=== PATIENT | male | born 1990 | race Two or more races ===

== ENCOUNTER 2016-05-19 17:22 | Emergency (ER) | payer MEDICAID ==
[~2016-05-19] VITALS: Ht 177.8 cm; Wt 113.4 kg
[~2016-05-19 17:22] MED LIST: BUSP10TA35 PO; FLUP25VI2 IJ; NO MEDS; TOPI100T9 PO
[2016-05-19 18:16] LABS: BASOPHILS # (AUTO) 0.4 /CMM (0.0-0.2); BASOPHILS % (AUTO) 4.2 % (0.0-2.0); DIFF TOTAL % 100 %; EOSINOPHILS # (AUTO) 0.2 /CMM (0.0-0.7); EOSINOPHILS % (AUTO) 2.5 % (0.0-6.0); HEMATOCRIT 43 % (39-51); HEMOGLOBIN 14.1 g/dL (13.5-17.5); LYMPHOCYTES # (AUTO) 2.3 /CMM (0.8-4.8); LYMPHOCYTES % (AUTO) 27.2 % (20.0-44.0); MEAN CORPUSCULAR HEMOGLOBIN 28 PG (26.0-33.0); MEAN CORPUSCULAR HGB CONC 33 g/dl (31.0-36.0); MEAN CORPUSCULAR VOLUME 86 fL (80-96); MONOCYTES # (AUTO) 0.6 /CMM (0.1-1.30); MONOCYTES % (AUTO) 7.5 % (2.0-12.0); NEUTROPHILS % (AUTO) 58.6 % (43.0-81.0); PLATELET COUNT (AUTO) 293 /CMM (150-450); RED BLOOD CELL COUNT(AUTO) 5.01 MIL/uL (4.5-6.0); WHITE BLOOD COUNT (AUTO) 8.5 K/uL (4.3-11.0)
[2016-05-19 18:35] LABS: ALANINE AMINOTRANSFERASE 75 U/L (12-78); ALBUMIN 3.5 g/dL (3.4-5.0); ANION GAP 14 (5-14); ASPARTATE AMINOTRANSFERASE 45 U/L (15-37); BILIRUBIN,DIRECT 0.1 mg/dL (0.0-0.2); BILIRUBIN,TOTAL 0.6 mg/dL (0.2-1.0); CARBON DIOXIDE 25 mmol/L (21-32); CHLORIDE 101 mmol/L (98-107); CREATININE 0.8 mg/dL (0.6-1.3); GFR 117 mL/min (>60); GLUCOSE 100 mg/dL (74-106); INDIRECT BILIRUBIN 0.5 mg/dL (0.0-1.1); POTASSIUM 3.9 mmol/L (3.5-5.1); SODIUM SERUM 136 mmol/L (136-145); TOTAL PROTEIN, SERUM 6.9 g/dL (6.4-8.2); UREA NITROGEN, BLOOD 16 mg/dL (7-18)
[2016-05-19 18:40] LABS: ACETAMINOPHEN 0 ug/ml (10-30)
[2016-05-19] MEDS ORDERED: LIDOCAINE 2% JEL UROJET 10 ML MM ONE (20:51)
[2016-05-19] MEDS: LIDOCAINE 2% JEL UROJET 10 ML MM ONE (20:57)
[2016-05-19 21:04] LABS: ADD UA MICROSCOPIC NO; KETONES,URINE Negative (NEGATIVE); LEUKOCYTE ESTERASE ,URINE Negative (NEGATIVE)
[2016-05-19 21:15] LABS: CANNABINOID, URINE NEGATIVE (NEGATIVE); PHENCYCLIDINE SCREEN,URINE NEGATIVE (NEGATIVE)
[2016-05-19 23:30] VITALS: BP 136/61
== END 2016-05-19 23:31 ==
LOC: ER 17:23
DX: F15.10 Other stimulant abuse, uncomplicated (principal); F31.9 Bipolar disorder, unspecified; F25.9 Schizoaffective disorder, unspecified; F41.9 Anxiety disorder, unspecified; F17.200 Nicotine dependence, unspecified, uncomplicated; Z88.0 Allergy status to penicillin; Z88.8 Allergy status to other drugs, medicaments and biological substances
CPT/HCPCS: 36415; 80048-TC; 80076-TC; 80305; 81000-TC; 85025-TC; A4606; G6038-TC; G6039-TC; G6040-TC; J3490; Z7610

== ENCOUNTER 2016-05-21 14:44 | Emergency (ER) | payer MEDICAID ==
[~2016-05-21] VITALS: Ht 172.7 cm; Wt 90.7 kg
[2016-05-21] MEDS ORDERED: LORAZEPAM INJ 2 MG/ML VIAL ONE ×5 (14:51→19:43)
[2016-05-21] MEDS ORDERED: LORAZEPAM INJ 2 MG/ML VIAL IM ONE ×2 (15:00→16:00)
[2016-05-21 15:15] LABS: BASOPHILS # (AUTO) 0.3 /CMM (0.0-0.2); BASOPHILS % (AUTO) 3.4 % (0.0-2.0); DIFF TOTAL % 100 %; EOSINOPHILS % (AUTO) 0.5 % (0.0-6.0); HEMATOCRIT 43 % (39-51); HEMOGLOBIN 14.4 g/dL (13.5-17.5); LYMPHOCYTES # (AUTO) 2.2 /CMM (0.8-4.8); LYMPHOCYTES % (AUTO) 22.4 % (20.0-44.0); MEAN CORPUSCULAR HEMOGLOBIN 29 PG (26.0-33.0); MEAN CORPUSCULAR HGB CONC 34 g/dl (31.0-36.0); MEAN CORPUSCULAR VOLUME 85 fL (80-96); MONOCYTES # (AUTO) 0.8 /CMM (0.1-1.30); NEUTROPHILS # (AUTO) 6.6 /CMM (1.8-8.9); NEUTROPHILS % (AUTO) 65.7 % (43.0-81.0); PLATELET COUNT (AUTO) 321 /CMM (150-450); RED BLOOD CELL COUNT(AUTO) 5.07 MIL/uL (4.5-6.0); WHITE BLOOD COUNT (AUTO) 9.9 K/uL (4.3-11.0)
[2016-05-21 15:30] LABS: ACETAMINOPHEN < 10 ug/ml (10-30); ALANINE AMINOTRANSFERASE 69 U/L (12-78); ALBUMIN 3.9 g/dL (3.4-5.0); ANION GAP 13 (5-14); ASPARTATE AMINOTRANSFERASE 42 U/L (15-37); BILIRUBIN,DIRECT 0.1 mg/dL (0.0-0.2); BILIRUBIN,TOTAL 0.5 mg/dL (0.2-1.0); CALCIUM, SERUM 8.9 mg/dL (8.5-10.1); CARBON DIOXIDE 27 mmol/L (21-32); CHLORIDE 101 mmol/L (98-107); GFR 90 mL/min (>60); GLUCOSE 109 mg/dL (74-106); INDIRECT BILIRUBIN 0.4 mg/dL (0.0-1.1); POTASSIUM 3.6 mmol/L (3.5-5.1); SALICYLATE 0.9 mg/dL (2.8-20.0); SODIUM SERUM 137 mmol/L (136-145); TOTAL PROTEIN, SERUM 7.3 g/dL (6.4-8.2); UREA NITROGEN, BLOOD 14 mg/dL (7-18)
[2016-05-21] MEDS ORDERED: IV NS 0.9% 1,000 ML BAG IV ONE ×2 (15:30→20:30)
[2016-05-21 15:32] LABS: TROPONIN I < 0.017 ng/mL (0.00-0.056)
[2016-05-21] MEDS ORDERED: IV SET PRIMARY PUMP SET 1 EA INFUS.SET MC ONE (15:33)
[2016-05-21] MEDS ORDERED: IV NS 0.9% 1,000 ML ONE ×2 (15:33→20:35)
[2016-05-21 15:53] LABS: CREATINE KINASE, TOTAL 945 U/L (39-308)
[2016-05-21] MEDS ORDERED: LORAZEPAM INJ 2 MG/ML VIAL IV ONE ×3 (16:30→20:00)
[2016-05-21 17:44] LABS: CREATINE KINASE MB 5.5 ng/mL (0-3.6)
[2016-05-21] MEDS ORDERED: diphenhydrAMINE HCL 50 MG/ML VIAL ONE (19:42)
[2016-05-21] MEDS ORDERED: diphenhydrAMINE HCL 50 MG/ML VIAL IV ONE (20:00)
[2016-05-21] MEDS ORDERED: IV SET PRIMARY 1 EA INFUS.SET MC ONE (20:35)
[2016-05-22 00:19] LABS: CREATINE KINASE MB 5.1 ng/mL (0-3.6)
[2016-05-22 05:46] VITALS: BP 133/71
== END 2016-05-22 05:47 | disposition home or self-care (01) ==
LOC: ER 14:46
DX: F15.10 Other stimulant abuse, uncomplicated (principal); M62.82 Rhabdomyolysis; F17.200 Nicotine dependence, unspecified, uncomplicated; F32.9 Major depressive disorder, single episode, unspecified; F31.9 Bipolar disorder, unspecified; F25.9 Schizoaffective disorder, unspecified; Z88.8 Allergy status to other drugs, medicaments and biological substances
CPT/HCPCS: 36415; 80048; 80076; 82550 ×2; 82553 ×2; 84484; 85025; 93005; 96361; 96372 ×2; 96374 ×2; 96375; 96376; 99285; A4606; G0480; G0481; G0482; J1200; J2060 ×5; J7030 ×2; G6038-TC; G6039-TC; G6040-TC; Z7610

== ENCOUNTER 2016-05-29 20:39 | Emergency (ER) | payer MEDICAID ==
[~2016-05-29] VITALS: Ht 172.7 cm; Wt 90.7 kg
[2016-05-29] MEDS ORDERED: LORAZEPAM 1 MG TABLET ONE (21:12)
[2016-05-29 21:17] LABS: BASOPHILS # (AUTO) 0.4 /CMM (0.0-0.2); BASOPHILS % (AUTO) 3.3 % (0.0-2.0); DIFF TOTAL % 100 %; EOSINOPHILS # (AUTO) 0.2 /CMM (0.0-0.7); EOSINOPHILS % (AUTO) 1.5 % (0.0-6.0); HEMATOCRIT 47 % (39-51); HEMOGLOBIN 15.9 g/dL (13.5-17.5); LYMPHOCYTES # (AUTO) 2.4 /CMM (0.8-4.8); LYMPHOCYTES % (AUTO) 22.7 % (20.0-44.0); MEAN CORPUSCULAR HEMOGLOBIN 29 PG (26.0-33.0); MEAN CORPUSCULAR HGB CONC 34 g/dl (31.0-36.0); MEAN CORPUSCULAR VOLUME 85 fL (80-96); MONOCYTES # (AUTO) 0.8 /CMM (0.1-1.30); MONOCYTES % (AUTO) 7.1 % (2.0-12.0); NEUTROPHILS # (AUTO) 6.8 /CMM (1.8-8.9); NEUTROPHILS % (AUTO) 65.4 % (43.0-81.0); PLATELET COUNT (AUTO) 309 /CMM (150-450); RED BLOOD CELL COUNT(AUTO) 5.49 MIL/uL (4.5-6.0); WHITE BLOOD COUNT (AUTO) 10.6 K/uL (4.3-11.0)
[2016-05-29 21:24] LABS: ANION GAP 14 (5-14); CALCIUM, SERUM 8.6 mg/dL (8.5-10.1); CARBON DIOXIDE 24 mmol/L (21-32); CHLORIDE 103 mmol/L (98-107); CREATININE 1.1 mg/dL (0.6-1.3); GFR 81 mL/min (>60); GLUCOSE 109 mg/dL (74-106); POTASSIUM 3.6 mmol/L (3.5-5.1); SODIUM SERUM 137 mmol/L (136-145); UREA NITROGEN, BLOOD 16 mg/dL (7-18)
[2016-05-29] MEDS ORDERED: LORAZEPAM 1 MG TABLET PO ONE (21:30)
[2016-05-29 21:37] LABS: ALANINE AMINOTRANSFERASE 48 U/L (12-78); ALBUMIN 3.9 g/dL (3.4-5.0); ASPARTATE AMINOTRANSFERASE 30 U/L (15-37); BILIRUBIN,TOTAL 0.3 mg/dL (0.2-1.0); TOTAL PROTEIN, SERUM 7.3 g/dL (6.4-8.2)
[2016-05-29 21:40] LABS: ACETAMINOPHEN 0 ug/ml (10-30); INDIRECT BILIRUBIN 0.3 mg/dL (0.0-1.1); SALICYLATE 0.5 mg/dL (2.8-20.0)
[2016-05-29 21:44] LABS: ADD UA MICROSCOPIC NO; KETONES,URINE Negative (NEGATIVE); LEUKOCYTE ESTERASE ,URINE Negative (NEGATIVE)
[2016-05-29 21:50] LABS: CANNABINOID, URINE NEGATIVE (NEGATIVE); PHENCYCLIDINE SCREEN,URINE NEGATIVE (NEGATIVE)
[2016-05-29 23:40] VITALS: BP 132/80
== END 2016-05-29 23:41 | disposition home or self-care (01) ==
LOC: ER 20:42
DX: F41.9 Anxiety disorder, unspecified (principal); F32.9 Major depressive disorder, single episode, unspecified; F31.9 Bipolar disorder, unspecified; F20.9 Schizophrenia, unspecified; F17.200 Nicotine dependence, unspecified, uncomplicated; F10.10 Alcohol abuse, uncomplicated; Z88.0 Allergy status to penicillin; Z88.8 Allergy status to other drugs, medicaments and biological substances
CPT/HCPCS: 36415; 80048; 80076; 80305; 81001; 85025; 99284; A4606; G0480; G0481; G0482; Z7610; 81000-TC; G6038-TC; G6039-TC; G6040-TC

== ENCOUNTER 2016-06-19 16:27 | Emergency (ER) | payer MEDICAID ==
[~2016-06-19] VITALS: Ht 182.9 cm; Wt 86.2 kg
[~2016-06-19 16:27] MED LIST changes: +TOPI100T11 PO; -TOPI100T9 PO
[2016-06-19] MEDS ORDERED: LORAZEPAM 1 MG TABLET ONE (16:51)
[2016-06-19 16:52] LABS: BASOPHILS # (AUTO) 0.1 /CMM (0.0-0.2); BASOPHILS % (AUTO) 0.6 % (0.0-2.0); DIFF TOTAL % 100 %; EOSINOPHILS # (AUTO) 0.2 /CMM (0.0-0.7); EOSINOPHILS % (AUTO) 2.1 % (0.0-6.0); HEMATOCRIT 51 % (39-51); HEMOGLOBIN 16.9 g/dL (13.5-17.5); LYMPHOCYTES # (AUTO) 2.5 /CMM (0.8-4.8); LYMPHOCYTES % (AUTO) 24.8 % (20.0-44.0); MEAN CORPUSCULAR HEMOGLOBIN 28 PG (26.0-33.0); MEAN CORPUSCULAR HGB CONC 33 g/dl (31.0-36.0); MEAN CORPUSCULAR VOLUME 85 fL (80-96); MONOCYTES # (AUTO) 0.6 /CMM (0.1-1.30); MONOCYTES % (AUTO) 6.1 % (2.0-12.0); NEUTROPHILS # (AUTO) 6.7 /CMM (1.8-8.9); NEUTROPHILS % (AUTO) 66.4 % (43.0-81.0); PLATELET COUNT (AUTO) 324 /CMM (150-450); RED BLOOD CELL COUNT(AUTO) 5.94 MIL/uL (4.5-6.0); WHITE BLOOD COUNT (AUTO) 10.1 K/uL (4.3-11.0)
[2016-06-19 17:00] LABS: CREATININE 1.1 mg/dL (0.6-1.3); POTASSIUM 3.9 mmol/L (3.5-5.1)
[2016-06-19] MEDS ORDERED: LORAZEPAM 1 MG TABLET PO ONE (17:00)
[2016-06-19 17:03] LABS: CALCIUM, SERUM 9.6 mg/dL (8.5-10.1)
[2016-06-19 19:07] LABS: CANNABINOID, URINE NEGATIVE (NEGATIVE); PHENCYCLIDINE SCREEN,URINE NEGATIVE (NEGATIVE)
[2016-06-19 21:02] VITALS: BP 113/76
== END 2016-06-19 21:04 ==
LOC: ER 16:29
DX: F23 Brief psychotic disorder (principal); R45.851 Suicidal ideations; F25.9 Schizoaffective disorder, unspecified; F17.200 Nicotine dependence, unspecified, uncomplicated; F32.9 Major depressive disorder, single episode, unspecified; F31.9 Bipolar disorder, unspecified; Z88.0 Allergy status to penicillin; Z88.8 Allergy status to other drugs, medicaments and biological substances
CPT/HCPCS: 36415; 80048; 80305; 85025; 99285; A4606; G0480; Z7610

== ENCOUNTER 2016-09-16 15:15 | Emergency (ER) | payer MEDICAID ==
[~2016-09-16] VITALS: Ht 172.7 cm; Wt 102.1 kg
--- NOTE | 2016-09-16 15:22 | NUR ---
PT BIB [facility] FOR BIZARRE BEHAVIOR AND SI WITHOUT A PLAN. PT REPORTS "HALLUCINATIONS". A/OX1 ONLY. ADMITS TO PCP, ECSTACY, MARIJUANA, AND ALCOHOL USE TODAY. RESP EVEN UNLABORED. TACHYCARDIC ON MONITOR. SKIN WARM NONDIAPHORETIC. PLACED ON 2 POINT RESTRAINTS FOR SAFETY. PIV PRESENT ON ARRIVAL. IN ER BED 12 ON MONITOR.
[2016-09-16 15:31] LABS: BASOPHILS # (AUTO) 0.1 /CMM (0.0-0.2); EOSINOPHILS # (AUTO) 0.1 /CMM (0.0-0.7); EOSINOPHILS % (AUTO) 0.7 % (0.0-6.0); HEMATOCRIT 42 % (39-51); HEMOGLOBIN 14.4 g/dL (13.5-17.5); LYMPHOCYTES # (AUTO) 1.4 /CMM (0.8-4.8); LYMPHOCYTES % (AUTO) 14.5 % (20.0-44.0); MEAN CORPUSCULAR HEMOGLOBIN 29 PG (26.0-33.0); MEAN CORPUSCULAR HGB CONC 34 g/dl (31.0-36.0); MEAN CORPUSCULAR VOLUME 87 fL (80-96); MONOCYTES # (AUTO) 0.6 /CMM (0.1-1.30); NEUTROPHILS # (AUTO) 7.4 /CMM (1.8-8.9); NEUTROPHILS % (AUTO) 77.8 % (43.0-81.0); PLATELET COUNT (AUTO) 320 /CMM (150-450); RDW COEFFICIENT OF VARIATION 12.9 (11.5-15.0); WHITE BLOOD COUNT (AUTO) 9.6 K/uL (4.3-11.0)
[2016-09-16 15:38] LABS: CALCIUM, SERUM 8.3 mg/dL (8.5-10.1); POTASSIUM 3.4 mmol/L (3.5-5.1)
[2016-09-16 15:44] LABS: ALBUMIN 3.5 g/dL (3.4-5.0); BILIRUBIN,TOTAL 0.2 mg/dL (0.2-1.0)
[2016-09-16] MEDS ORDERED: IV SET PRIMARY 1 EA INFUS.SET MC ONE (15:45)
[2016-09-16] MEDS ORDERED: IV NS 0.9% 1,000 ML ONE (15:45)
[2016-09-16 15:47] LABS: SALICYLATE 1.9 mg/dL (2.8-20.0)
[2016-09-16] MEDS ORDERED: IV NS 0.9% 1,000 ML BAG IV ONE (16:00)
--- NOTE | 2016-09-16 16:30 | NUR ---
PT UNABLE TO URINATE IN URINAL. IN AND OUT CATH PERFORMED FOR URINE SAMPLE.
[2016-09-16 16:55] LABS: APPEARANCE,URINE CLEAR (CLEAR); BILIRUBIN,URINE NEGATIVE (NEGATIVE); BLOOD, URINE NEGATIVE Ery/uL (NEGATIVE); COLOR,URINE YELLOW (YELLOW); KETONES,URINE NEGATIVE (NEGATIVE); LEUKOCYTE ESTERASE ,URINE NEGATIVE (NEGATIVE); NITRITE, URINE NEGATIVE (NEGATIVE); PROTEIN,URINE NEGATIVE (NEGATIVE); UGLUCOSE NEGATIVE (NEGATIVE); UROBILINOGEN,URINE 0.2 EU/dL (0.2)
[2016-09-16 17:15] LABS: PHENCYCLIDINE SCREEN,URINE NEGATIVE (NEGATIVE)
[2016-09-16 17:18] LABS: CANNABINOID, URINE POSITIVE (NEGATIVE)
--- NOTE | 2016-09-16 17:44 | NUR ---
RESTING QUIETLY ON 1 POINT RESTRAINT. NAD NOTED. ALL NEEDS ATTENDED TO. CALLED FOR FOOD TRAY.
--- NOTE | 2016-09-16 19:13 | NUR ---
PINKY AT BEDSIDE
[2016-09-16] MEDS ORDERED: risperiDONE 1 MG TABLET ONE (19:25)
[2016-09-16] MEDS ORDERED: risperiDONE 0.25 MG TABLET PO ONE (19:30)
--- NOTE | 2016-09-16 19:32 | NUR ---
PT WALKING AROUND ER, MAKING PHONE CALLS TO "GODMOTHER". ALL NEEDS ATTENDED TO. ORDER FOR RISPERIDOL RECEIVED AND ADMINISTERED.
[2016-09-16 20:55] VITALS: BP 119/66
--- NOTE | 2016-09-16 21:22 | NUR ---
PT TRANSPORTED TO [facility] IN STABLE CONDITION. REPORT CALLED TO FACILITY.
== END 2016-09-16 21:33 ==
LOC: ER 15:24
DX: F23 Brief psychotic disorder (principal); F32.9 Major depressive disorder, single episode, unspecified; F31.9 Bipolar disorder, unspecified; Z88.0 Allergy status to penicillin; Z88.8 Allergy status to other drugs, medicaments and biological substances; F17.210 Nicotine dependence, cigarettes, uncomplicated
CPT/HCPCS: 36415; 80048; 80076; 80305; 80329; 81001; 85025; 96360; 99285; 99406; A4606; G0480 ×2; J7030; Z7610; 81000-TC; G6039-TC

== ENCOUNTER 2016-09-24 23:49 | Emergency (ER) | payer MEDICAID ==
[~2016-09-24] VITALS: Ht 172.7 cm; Wt 77.1 kg
[2016-09-25] MEDS ORDERED: diphenhydrAMINE HCL 50 MG/ML VIAL IM ONE
[2016-09-25] MEDS ORDERED: OLANZAPINE 5 MG TABLET PO ONE
--- NOTE | 2016-09-25 | NUR ---
to bed 14 bib paramedics c/o paranoia "i feel like someone is after me". pt aaox4 no acute distress noted, resp even and unlabored. pt calm and cooperative at this time. pt denies si or hi at this time. pt admits to using heroin. er md at bedside to eval pt with orders received. will carry out orders.
[2016-09-25] MEDS ORDERED: diphenhydrAMINE HCL 50 MG/ML VIAL ONE (00:04)
[2016-09-25] MEDS ORDERED: OLANZAPINE 5 MG TABLET ONE (00:04)
--- NOTE | 2016-09-25 00:11 | NUR ---
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 pt medicated as ordered.
[2016-09-25 00:18] LABS: BASOPHILS # (AUTO) 0.1 /CMM (0.0-0.2); BASOPHILS % (AUTO) 0.8 % (0.0-2.0); EOSINOPHILS # (AUTO) 0.2 /CMM (0.0-0.7); EOSINOPHILS % (AUTO) 1.8 % (0.0-6.0); HEMATOCRIT 43 % (39-51); HEMOGLOBIN 14.3 g/dL (13.5-17.5); LYMPHOCYTES # (AUTO) 1.6 /CMM (0.8-4.8); LYMPHOCYTES % (AUTO) 15.8 % (20.0-44.0); MEAN CORPUSCULAR HEMOGLOBIN 29 PG (26.0-33.0); MEAN CORPUSCULAR HGB CONC 33 g/dl (31.0-36.0); MEAN CORPUSCULAR VOLUME 88 fL (80-96); MONOCYTES # (AUTO) 0.6 /CMM (0.1-1.30); MONOCYTES % (AUTO) 5.9 % (2.0-12.0); NEUTROPHILS # (AUTO) 7.5 /CMM (1.8-8.9); NEUTROPHILS % (AUTO) 75.7 % (43.0-81.0); PLATELET COUNT (AUTO) 255 /CMM (150-450); RDW COEFFICIENT OF VARIATION 13.5 (11.5-15.0); RED BLOOD CELL COUNT(AUTO) 4.87 MIL/uL (4.5-6.0); WHITE BLOOD COUNT (AUTO) 9.9 K/uL (4.3-11.0)
[2016-09-25 00:28] LABS: CALCIUM, SERUM 8.7 mg/dL (8.5-10.1); CARBON DIOXIDE 29 mmol/L (21-32); CHLORIDE 105 mmol/L (98-107); CREATININE 0.9 mg/dL (0.6-1.3); GFR 101 mL/min (>60); GLUCOSE 125 mg/dL (74-106); SODIUM SERUM 141 mmol/L (136-145); UREA NITROGEN, BLOOD 14 mg/dL (7-18)
--- NOTE | 2016-09-25 00:35 | NUR ---
urine sample collected and sent to lab.
[2016-09-25 00:56] LABS: ACETAMINOPHEN 0 ug/ml (10-30); ALANINE AMINOTRANSFERASE 58 U/L (12-78); ALBUMIN 3.6 g/dL (3.4-5.0); ALCOHOL, BLOOD < 3 mg/dL (0-0); ALKALINE PHOSPHATASE 128 U/L (46-116); ASPARTATE AMINOTRANSFERASE 36 U/L (15-37); BILIRUBIN,DIRECT 0.1 mg/dL (0.0-0.2); BILIRUBIN,TOTAL 0.2 mg/dL (0.2-1.0); SALICYLATE 1.4 mg/dL (2.8-20.0); TOTAL PROTEIN, SERUM 7.3 g/dL (6.4-8.2)
[2016-09-25 00:58] LABS: CANNABINOID, URINE NEGATIVE (NEGATIVE); PHENCYCLIDINE SCREEN,URINE NEGATIVE (NEGATIVE)
--- NOTE | 2016-09-25 02:08 | NUR ---
pt asleep, no acute distress noted, resp even and unlabored. call light within reach.
--- NOTE | 2016-09-25 03:22 | NUR ---
pt asleep, easily arousable, no acute distress noted, resp even and unlabored. call light within reach.
--- NOTE | 2016-09-25 03:33 | NUR ---
PT GIVEN WARM BLANKETS REQUESTED. VSS, NAD NOTED. DENIES COMPLAINT AT THIS TIME.
--- NOTE | 2016-09-25 05:59 | NUR ---
Patient discharged to home in stable condition. Written and verbal after care instructions given. Patient verbalizes understanding of instruction. ambulatory with a steady gait noted. pt aaox4 no acute distress noted, resp even and unlabored. pt denies si or hi.
[2016-09-25 06:01] VITALS: BP 124/69
== END 2016-09-25 06:01 | disposition home or self-care (01) ==
LOC: ER 23:54
DX: F20.0 Paranoid schizophrenia (principal); F15.10 Other stimulant abuse, uncomplicated; F31.9 Bipolar disorder, unspecified; F25.9 Schizoaffective disorder, unspecified; Z88.0 Allergy status to penicillin; Z88.8 Allergy status to other drugs, medicaments and biological substances; F17.200 Nicotine dependence, unspecified, uncomplicated
CPT/HCPCS: 36415; 80048-TC; 80076-TC; 80305; 85025-TC; A4606; G0480; G6039-TC; J1200; Z7610